=== PATIENT | male | born 1980 | race Caucasian/White ===

== ENCOUNTER 2023-05-12 22:21 | Emergency (ER) | payer MEDICAID ==
[~2023-05-12] VITALS: Ht 172.7 cm; Wt 79.4 kg
[2023-05-12] MEDS ORDERED: IBUPROFEN 400 MG TABLET ONE (23:23)
[2023-05-12] MEDS: IBUPROFEN 400 MG TABLET PO ONE (23:34)
[2023-05-13 00:33] VITALS: BP 153/84; TEMP 98.2; O2SAT 99
== END 2023-05-13 00:34 | disposition home or self-care (01) ==
LOC: ER 22:29
DX: S83.8X2A Sprain of other specified parts of left knee, initial encounter (principal); S16.1XXA Strain of muscle, fascia and tendon at neck level, initial encounter; S39.012A Strain of muscle, fascia and tendon of lower back, initial encounter; V89.2XXA Person injured in unspecified motor-vehicle accident, traffic, initial encounter; Y93.89 Activity, other specified; Y92.89 Other specified places as the place of occurrence of the external cause; Y99.8 Other external cause status
CPT/HCPCS: 72125-TC; 72131-TC; 73564-TC